=== PATIENT | female | born 1970 | race Caucasian/White ===

== ENCOUNTER 2021-03-11 16:45 | Emergency (ER) | payer MEDICARE, MEDICAID, SELFPAY ==
--- NOTE | ~2021-03-11 | CT_ITS ---
EXAMINATION: CT HEAD WITHOUT CONTRAST CLINICAL INFORMATION: Headache, blurred vision. COMPARISON: Correlation with MRI brain 11/25/2015. TECHNIQUE: Contiguous axial imaging was performed from the skull base to vertex without intravenous administration of contrast. This CT examination was performed using dose optimization techniques as appropriate, variously including the following: *Automated exposure control *Adjustment of mA and/or kV according to patient size (this includes techniques or standardized protocols for targeted exams where dose is matched to indication/reason for exam; i.e. extremities or head) *Use of iterative reconstruction technique DLP: 714 mGy-cm FINDINGS: There is no evidence of acute intracranial hemorrhage or territorial infarction. No abnormal mass effect or midline shift is seen. [place] to white matter differentiation is well preserved. No extra-axial fluid collections are identified. The ventricles are normal in size. There is no abnormal attenuation within the brain parenchyma. No acute calvarial abnormality. The mastoid air cells and visualized portions of the paranasal sinuses are well aerated. CT/CT head/brain wo con IMPRESSION: No CT evidence of acute intracranial pathology.
[2021-03-11 17:05] VITALS: BP 126/67; PULSE 84; RESP 16; TEMP 36.8; O2SAT 98
[2021-03-11 17:14] VITALS: BP 119/70; PULSE 90; RESP 18; TEMP 37.2; O2SAT 97; BMI 74.5
[2021-03-11 18:00] VITALS: BP 129/81; PULSE 79; RESP 16; TEMP 36.7; O2SAT 99
--- NOTE | 2021-03-11 18:07 | ECG_ITS ---
Test Reason : MEDICAL Blood Pressure : / mmHG Vent. Rate : 069 BPM Atrial Rate : 069 BPM P-R Int : 134 ms QRS Dur : 086 ms QT Int : 404 ms P-R-T Axes : 035 029 038 degrees QTc Int : 432 ms Normal sinus rhythm Normal ECG When compared with ECG of 13-AUG-2016 11:00, No significant change was found Referred By: Sharda Rodriges Electronically Signed By:OLU LAUGHLIN MD
--- NOTE | 2021-03-11 18:09 | ED_ITS ---
[facility] - General Adult General Source: patient, RN notes reviewed and old records reviewed Mode of arrival: ambulatory Limitations: no limitations History of Present Illness HPI narrative: 50-year-old female with a history of small fiber neuropathy diagnosed 5 years ago. Patient is being followed by Dr. Leonard at [facility]. She has been getting immunoglobulin infusions 3 times a month for the last 5 years. During the infusion today patient's nurse was checking her blood pressure and blood pressure was elevated to 160/110. Patient complained of blurred vision and 8/10 headache frontal lobe and temporal areas bilaterally. Denies any dizziness, nausea, vomiting. Reports to have headache with eye movements. Denies fever or chills. Denies recent travels. Related Data Previous Rx's Medication Instructions Recorded omwdobcxef-oyhfyiuggrewa-clox 1 cap PO Q8H PRN #10 cap 03/11/21 [Fioricet] Allergies Allergy/AdvReac Type Severity Reaction Status Date / Time lamotrigine [From LAMICTAL] AdvReac Intermediate intolerance Unverified 07/30/20 15:50 SEASONAL ALLERGIES Allergy Intermediate respiratory Uncoded 07/30/20 15:50 symptoms Lyrica Allergy Unknown rash Uncoded 01/18/19 00:00 Review of Systems Review of Systems: Constitutional : No Weight loss, No Fever, No Chills, No Night Sweats, No Fatigue, No Malaise ENT/Mouth : No Hearing loss, No Ear Pain, No Nasal Congestion, No Sinus Pain, No Hoarseness, No sore throat, No Rhinorrhea, No Swallowing Difficulty Eyes: No Eye Pain, No Swelling, No Redness, No Foreign Body, No Discharge, blurred vision Cardiovascular : No Chest Pain, No SOB, No Dyspnea on Exertion, No Orthopnea, No Edema, No Palpitations Respiratory : No Cough, No Sputum, No Wheezing, No Smoke Exposure, No Dyspnea Gastrointestinal : No Nausea, No Vomiting, No Diarrhea, No Constipation, No abdominal Pain, No Hematochezia, No Melena Genitourinary : no irregular bleeding, No Dysuria, No Urinary Frequency, No Hematuria, No Urinary Incontinence, No Urgency, No Flank Pain, No Urinary Flow Changes, No Hesitancy Musculoskeletal : No joint pain, No Myalgias, No Joint Swelling Skin : No Skin Lesions, No rash Neuro : No Weakness, No Numbness, No Paresthesias, No Loss of Consciousness, No Dizziness, headache Psych : No Anxiety/Panic, No Depression, No SI/HI/AH/VH, No Social Issues, Heme/Lymph: No Bruising, No Bleeding,No Lymphadenopathy Endocrine : No Polyuria, No Polydipsia, No Temperature Intolerance Yes all other systems are reviewed and are negative [facility] Past Medical History Medical History (Updated 03/12/21 @ 00:00 by Background Markie) Small fiber neuropathy Social History Social History Alcohol intake: current Alcohol intake frequency: holidays/special occasions only Smoking Status: Current every day smoker Use of substances other than those prescribed or required for medical reasons: No Advance Directives: No Advance Directives Information Provided: No Physical Exam Vital Signs: Vital Signs: Last Vital Signs Temp 98.3 F 03/11/21 19:38 Pulse 76 03/11/21 19:38 Resp 18 03/11/21 19:38 BP 119/69 03/11/21 19:38 Pulse Ox 95 03/11/21 19:38 Body Mass Index 74.5 Const: General: cooperative, healthy appearing and comfortable Nutritional Appearance: average body habitus Orientation/consciousness: patient oriented x3 Limitations: no limitations HENMT: Head: Yes normal to inspection Ears: hearing grossly normal bilaterally General nose exam: Normal external nose present Face and sinus: Yes normal facial exam Mouth: Normal oral and palatal mucosa present Throat: Yes posterior oropharynx normal Eyes: General: appearance normal, both eyes and all related structures Eyelids: Yes eyelids normal Conjunctivae: conjunctivae normal Sclerae: sclerae normal Pupils: Equal, round and reactive pupils present Neck: Thyroid: Thyroid normal Lymphatic: no lymphadenopathy noted Skin: General skin exam: no rashes or lesions noted, elasticity normal and turgor normal Neuro: General: patient oriented x3 Cranial nerves: Yes Equal, round and reactive pupils present Extrem: General: Yes normal to inspection, Yes full ROM and Yes capillary refill normal Psych: Appearance: grossly normal Mental Status: mental status grossly normal Speech and movement: Normal speech and movement present Affect: normal affect Attitude: cooperative Thought process: Normal thought process present Insight: Good insight present (Psych) Course Course Course Narrative: 50-year-old female here today for complaining of high blood pressure at home during immunoglobulin transfusion that she gets 3 times a mo [facility]. Patient has a history of small fiber neuropathy seen at [facility] by Dr. Kinsey. Patient was diagnosed with that 6 years ago. Receiving treatments for the last 5 years. She reports she never had a reaction like this before. Complaints of blurry vision and headache. Will order CBC and CMP. We will recheck her blood pressure, will monitor for worsening symptoms. Will order CT of the head. Patient has normals are negative otherwise, except for increasing headache with eye movements. Reevaluation(s) Reevaluation #1: Patient continues to have a headache, CT scan normal. Will discharge her home with Fioricet. Medications to ibuprofen before discharge. Patient denies dizziness, syncope you, presyncope. Patient will be discharged home to follow-up with her neurologist at [facility]. Patient is agreeable to this plan. Patient's vital signs that included blood pressure was all normal. Medical Decision Making Lab Data Result diagrams: 03/11/21 18:11 03/11/21 18:11 Labs: Lab Results 03/11/21 03/11/21 Range/Units 18:11 18:11 WBC 10.5 (4.8-10.8) X10*3/uL RBC 3.74 L (4.20-5.50) X10*6/uL Hgb 12.0 (12.0-16.0) g/dl Hct 35.2 L (37-47) % MCV 94.1 (80-98) fL MCH 32.1 (27.0-33.0) pg MCHC 34.1 (31.0-35.0) g/dl RDW 13.3 (11.0-16.0) % Plt Count 282 (160-400) X10*3/uL MPV 10.0 (9.4-12.3) fL Immature Gran % (Auto) 2.6 H (0.0-0.4) % Neut % (Auto) 75.2 H (45-73) % Lymph % (Auto) 18.0 L (20-40) % [place] % (Auto) 3.7 (2-11) % Eos % (Auto) 0.2 (0-4) % Baso % (Auto) 0.3 (0-2) % Lymph # (Auto) 1.9 (1.2-4.9) X10*3/uL [place] # (Auto) 0.4 (0.1-1.2) X10*3/uL Eos # (Auto) 0.0 (0.0-0.4) X10*3/uL Baso # (Auto) 0.0 (0.0-0.2) X10*3/uL Abs Immat Gran (auto) 0.27 H (0.00-0.03) X10*3/uL Absolute Neuts (auto) 7.9 (2.0-8.3) X10*3/uL Absolute Nucleated RBC 0.000 (0.0-0.012) X10*3/uL Nucleated RBC % (auto) 0.0 (0.0-0.2) /100WBC Sodium 134 L (135-145) mmol/L Potassium 4.2 (3.3-5.1) mmol/L Chloride 104 (96-108) mmol/L Carbon Dioxide 21 L (22-29) mmol/L Anion Gap 13 (12-20) BUN 13 (9-16) mg/dL Creatinine 0.67 (0.5-1.4) mg/dL Estim Creat Clear Calc 199.9 Estimated GFR > 60 Random Glucose 111 (60-115) mg/dL Calcium 8.9 (8.4-10.2) mg/dL Total Bilirubin 0.3 (0.0-1.0) mg/dL AST 21 (5-31) U/L ALT 18 (0-31) U/L Alkaline Phosphatase 47 (39-117) U/L Total Protein 9.0 H (6.5-8.0) g/dL Albumin 3.6 (3.5-5.0) g/dL Imaging Data CT scan - head: Attestation: I personally reviewed and interpreted this imaging study as follows: Radiologist's impression: FINDINGS: There is no evidence of acute intracranial hemorrhage or territorial infarction. No abnormal mass effect or midline shift is seen. [place] to white matter differentiation is well preserved. No extra-axial fluid collections are identified. The ventricles are normal in size. There is no abnormal attenuation within the brain parenchyma. No acute calvarial abnormality. The mastoid air cells and visualized portions of the paranasal sinuses are well aerated. CT/CT head/brain wo con IMPRESSION: No CT evidence of acute intracranial pathology. Discharge Plan Discharge Clinical Impression: Elevated blood pressure reading, Headache Patient Disposition: Home, Self-Care Instructions: Migraine Headache (ED), Hypertension (ED) Additional Instructions: You came to the ED for migraine headache, blurred vision and high blood pressure. The blood pressure in the emergency department was normal. Your CT scan was normal as well as your labs. Please follow-up with your neurologist. Follow-up with your PCP in 2-3 days. Monitor your blood pressure. Return to emergency department if you experience any concerning symptoms. Prescriptions: New tkrpuccrxu-jfoytjcrzjxjg-vftj [Fioricet] 50-300-40 mg capsule 1 cap PO Q8H PRN (Reason: pain) Qty: 10 RF: 0 Interventions: ED Discharge Assessment Last Done: 03/11/21 19:51 Discharge Date/Time: 03/11/21 19:59
[2021-03-11 18:22] LABS: MANUAL DIFF FLAG NO
[2021-03-11 18:27] LABS: Basophils Percent Auto 0.3 % (0-2); Eosinophils Percent Auto 0.2 % (0-4); Hematocrit 35.2 % (37-47); Imm Gran Abs Auto 0.27 X10*3/uL (0.00-0.03); Imm Gran Pct Auto 2.6 % (0.0-0.4); Lymphocytes Absolute Auto 1.9 X10*3/uL (1.2-4.9); Mean Corpuscular HGB Conc 34.1 g/dl (31.0-35.0); Mean Corpuscular Hemoglobin 32.1 pg (27.0-33.0); Mean Corpuscular Volume 94.1 fL (80-98); Monocytes Absolute Auto 0.4 X10*3/uL (0.1-1.2); Monocytes Percent Auto 3.7 % (2-11); Neutrophils Absolute Auto 7.9 X10*3/uL (2.0-8.3); Neutrophils Percent Auto 75.2 % (45-73); Platelet Count 282 X10*3/uL (160-400); Red Blood Count 3.74 X10*6/uL (4.20-5.50); Red Cell Distribution Width 13.3 % (11.0-16.0); White Blood Count 10.5 X10*3/uL (4.8-10.8)
[2021-03-11 18:30] VITALS: BP 129/70; PULSE 75; RESP 17; TEMP 36.6; O2SAT 99
--- NOTE | 2021-03-11 18:35 | PC.NURSE ---
patient a&ox3, iv inserted, labs drawn, cardiac/vascular sonographer applied, vss, will continue to monitor.
--- NOTE | 2021-03-11 18:40 | PC.NURSE ---
pt to ct scan
[2021-03-11 18:48] LABS: Alanine Aminotransferase 18 U/L (0-31); Albumin Level 3.6 g/dL (3.5-5.0); Alkaline Phosphatase 47 U/L (39-117); Anion Gap 13 (12-20); Aspartate Amino Transferase 21 U/L (5-31); Bilirubin Total 0.3 mg/dL (0.0-1.0); Blood Urea Nitrogen 13 mg/dL (9-16); Calcium 8.9 mg/dL (8.4-10.2); Carbon Dioxide 21 mmol/L (22-29); Chloride 104 mmol/L (96-108); Creatinine Clr Calc Pharmacy 199.9; Estimated Glomerular Filt Rate > 60; Glucose Random 111 mg/dL (60-115); Potassium 4.2 mmol/L (3.3-5.1); Sodium 134 mmol/L (135-145)
[2021-03-11 19:00] VITALS: BP 108/61; PULSE 71; RESP 16; TEMP 36.7; O2SAT 95
[2021-03-11 19:38] VITALS: BP 119/69; PULSE 76; RESP 18; TEMP 36.8; O2SAT 95
[2021-03-11] MEDS: Ibuprofen 600 MG TABLET PO (19:56)
== END 2021-03-11 19:59 | disposition home or self-care (01) ==
PROVIDERS: Nurse Practitioner Family; Emergency Provider Internal Medicine; PCP Internal Medicine
DX: R51.9 Headache, unspecified (principal); R03.0 Elevated blood-pressure reading, without diagnosis of hypertension; F17.200 Nicotine dependence, unspecified, uncomplicated
CPT/HCPCS: 36415; 70450; 80053; 85025; 93005; 99284; 99285

== ENCOUNTER → 2023-02-15 09:42 | Outpatient (BNVA) | payer MEDICARE, MEDICAID, SELFPAY | PROVIDERS: PCP Internal Medicine; Visit Provider Nurse Practitioner Family | DX: R51.9 Headache, unspecified (principal); H53.2 Diplopia; M26.609 Unspecified temporomandibular joint disorder, unspecified side; F45.8 Other somatoform disorders; Z72.0 Tobacco use | CPT/HCPCS: 99202 ==

== ENCOUNTER 2023-02-16 08:46 | Outpatient (REF) | payer MEDICARE, MEDICAID, SELFPAY ==
[2023-02-16 11:33] LABS: MANUAL DIFF FLAG NO
[2023-02-16 11:49] LABS: Basophils Absolute Auto 0.1 X10*3/uL (0.0-0.2); Basophils Percent Auto 0.7 % (0-2); Eosinophils Absolute Auto 0.1 X10*3/uL (0.0-0.4); Hematocrit 40.2 % (37.0-47.0); Hemoglobin 13.1 g/dl (12.0-16.0); Imm Gran Abs Auto 0.09 X10*3/uL (0.00-0.03); Lymphocytes Absolute Auto 3.5 X10*3/uL (1.2-4.9); Lymphocytes Percent Auto 36.8 % (20-40); Mean Corpuscular HGB Conc 32.6 g/dl (31.0-35.0); Mean Corpuscular Hemoglobin 31.6 pg (27.0-33.0); Mean Corpuscular Volume 97.1 fL (80.0-98.0); Mean Platelet Volume 11.2 fL (9.4-12.3); Monocytes Absolute Auto 0.8 X10*3/uL (0.1-1.2); Neutrophils Percent Auto 52.5 % (45-73); Platelet Count 263 X10*3/uL (160-400); Red Blood Count 4.14 X10*6/uL (4.20-5.50); Red Cell Distribution Width 13.8 % (11.0-16.0); White Blood Count 9.4 X10*3/uL (4.8-10.8)
[2023-02-16 12:14] LABS: Alanine Aminotransferase 34 U/L (0-31); Albumin Level 3.9 g/dL (3.5-5.0); Alkaline Phosphatase 83 U/L (39-117); Anion Gap 17 (12-20); Aspartate Amino Transferase 26 U/L (5-31); Bilirubin Total 0.4 mg/dL (0.0-1.0); Blood Urea Nitrogen 10 mg/dL (9-16); Carbon Dioxide 22 mmol/L (22-29); Chloride 105 mmol/L (96-108); Estimated Glomerular Filt Rate > 60; Glucose Random 96 mg/dL (60-115); Potassium 4.2 mmol/L (3.3-5.1); Sodium 140 mmol/L (135-145); Total Protein 7.6 g/dL (6.5-8.0)
== END 2023-02-16 08:47 | disposition home or self-care (01) ==
LOC: HO.HMGCLDS 08:46
PROVIDERS: PCP Internal Medicine; Visit Provider Nurse Practitioner Family
DX: E78.5 Hyperlipidemia, unspecified (principal); R51.9 Headache, unspecified
CPT/HCPCS: 36415; 80053; 85025

== ENCOUNTER 2023-03-13 10:20 | Outpatient (REF) | payer MEDICARE, MEDICAID, SELFPAY ==
--- NOTE | ~2023-03-13 | MR_ITS ---
EXAMINATION: MR BRAIN WITHOUT CONTRAST MR ANGIOGRAPHY BRAIN WITHOUT CONTRAST CLINICAL INFORMATION: Headache, evaluate for left trigeminal vascular process/compression COMPARISON: MRI brain 11/25/[address] head 03/11/2021 TECHNIQUE: Multiplanar, multisequence MR imaging of the brain was obtained without the use of intravenous gadolinium. In addition, 3D [id number] MR angiography was performed through the brain, and axial source images were reviewed along with rotating MIPs. FINDINGS: MRI BRAIN: The cisternal segments of the trigeminal nerves appears normal without abnormal thickening or enhancement. In the region of the root entry zone, the trigeminal nerves do not appear deformed. No neurovascular compression along the cisternal segments of the trigeminal nerves. Normal fluid signal intensity of Meckel's caves. The cavernous sinus enhances normally. Fat within the periorbital fissures, pterygopalatine fossa, trigeminal fat pad, and mandibular alveolar foramina is preserved.The shant and region of the trigeminal nerve nuclei appears normal. No parenchymal abnormality to suggest underlying demyelinating process. No acute infarct. No acute intracranial hemorrhage or extra-axial fluid collection. The ventricles and sulci are normal in size and configuration without significant volume loss or hydrocephalus. No mass lesion, mass effect, or herniation pattern. The midline structures are normal. Normal intracranial arterial and dural venous sinus flow voids. The imaged orbits are grossly unremarkable. The paranasal sinuses and mastoids are well aerated. The craniovertebral junction is intact. Normal marrow signal. 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 MRA HEAD: Normal flow-related signal is seen within the anterior and posterior circulation. No focal flow-limiting stenosis, proximal large artery occlusion, or discrete saccular intracranial aneurysm is identified. 1.7 mm infundibular origin of the right posterior commuting artery. Incidental CARLOS trifurcation. No arteriovenous shunting lesion. MR/MR angio head wo con IMPRESSION: No evidence of neurovascular compression of the left trigeminal nerve, as clinically queried. 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 Normal MRA of the head.
--- NOTE | ~2023-03-13 | MR_ITS ---
EXAMINATION: MR BRAIN WITHOUT CONTRAST MR ANGIOGRAPHY BRAIN WITHOUT CONTRAST CLINICAL INFORMATION: Headache, evaluate for left trigeminal vascular process/compression COMPARISON: MRI brain 11/25/[address] head 03/11/2021 TECHNIQUE: Multiplanar, multisequence MR imaging of the brain was obtained without the use of intravenous gadolinium. In addition, 3D [id number] MR angiography was performed through the brain, and axial source images were reviewed along with rotating MIPs. FINDINGS: MRI BRAIN: The cisternal segments of the trigeminal nerves appears normal without abnormal thickening or enhancement. In the region of the root entry zone, the trigeminal nerves do not appear deformed. No neurovascular compression along the cisternal segments of the trigeminal nerves. Normal fluid signal intensity of Meckel's caves. The cavernous sinus enhances normally. Fat within the periorbital fissures, pterygopalatine fossa, trigeminal fat pad, and mandibular alveolar foramina is preserved.The shant and region of the trigeminal nerve nuclei appears normal. No parenchymal abnormality to suggest underlying demyelinating process. No acute infarct. No acute intracranial hemorrhage or extra-axial fluid collection. The ventricles and sulci are normal in size and configuration without significant volume loss or hydrocephalus. No mass lesion, mass effect, or herniation pattern. The midline structures are normal. Normal intracranial arterial and dural venous sinus flow voids. The imaged orbits are grossly unremarkable. The paranasal sinuses and mastoids are well aerated. The craniovertebral junction is intact. Normal marrow signal. 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 MRA HEAD: Normal flow-related signal is seen within the anterior and posterior circulation. No focal flow-limiting stenosis, proximal large artery occlusion, or discrete saccular intracranial aneurysm is identified. 1.7 mm infundibular origin of the right posterior commuting artery. Incidental CARLOS trifurcation. No arteriovenous shunting lesion. MR/MR head/brain wo/w con IMPRESSION: No evidence of neurovascular compression of the left trigeminal nerve, as clinically queried. 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 Normal MRA of the head.
== END 2023-03-13 10:21 | disposition home or self-care (01) ==
LOC: HO.MRI 10:20
PROVIDERS: PCP Internal Medicine; Visit Provider Nurse Practitioner Family
DX: R51.9 Headache, unspecified (principal); H53.2 Diplopia; G62.9 Polyneuropathy, unspecified; E78.5 Hyperlipidemia, unspecified
CPT/HCPCS: 70544; 70553; A9585

== ENCOUNTER 2023-03-30 14:00 | Outpatient (RCR) | payer MEDICARE, MEDICAID, SELFPAY | END 2023-05-18 14:06 | disposition home or self-care (01) | LOC: HO.PT 14:00 | PROVIDERS: PCP Internal Medicine; Visit Provider Nurse Practitioner Family | DX: F45.8 Other somatoform disorders (principal); M26.602 Left temporomandibular joint disorder, unspecified | CPT/HCPCS: 97110; 97140; 97161 ==